=== PATIENT | male | born 1955 | race Caucasian/White ===

== ENCOUNTER 2017-11-02 21:18 | Observation (INO) | payer BC ==
[~2017-11-02] VITALS: Ht 177.8 cm; Wt 107.5 kg
[2017-11-02] MEDS ORDERED: RT ADVAIR 128 DISKUS IH (22:12)
[2017-11-02] MEDS ORDERED: COZAAR 50MG50 MG/TAB PO (22:13)
[2017-11-02 22:18] LABS: BASO % 0.2 % (0.0-2.0); EOS # 0.2 (0.0-0.7); EOS % 2.3 % (0-4.0); GRAN # 5.9 (1.4-6.5); GRAN % 71.4 % (42.2-75.2); HEMATOCRIT 46.5 % (42.0-52.0); HEMOGLOBIN 15.9 g/dl (13.5-18.0); LYMPH # 1.4 (1.2-3.4); LYMPH % 16.8 % (20.0-51.0); MEAN CELL VOLUME 89 fl (80.0-100.0); MEAN CORPUSCULAR HEMOGLOBIN 30 pg (27.0-31.0); MEAN CORPUSCULAR HGB CONC 34 g/dl (33.0-37.0); MEAN PLATELET VOLUME 9.7 fl (7.4-10.4); MONO # 0.7 (0.1-0.6); MONO % 8.8 % (1.7-9.3); PLATELET COUNT 220 K/mm3 (130-400); RED BLOOD COUNT 5.25 M/mm3 (4.20-5.60)
[2017-11-02 22:28] LABS: ALBUMIN 4.6 gm/dL (3.5-5.0); BILIRUBIN,TOTAL 0.8 mg/dL (0.0-1.0); CALCIUM 9.8 mg/dL (8.4-10.2); CREATININE, serum 0.92 mg/dL (0.66-1.25); POTASSIUM 4.4 mmol/L (3.4-5.0); TOTAL PROTEIN 8.4 gm/dL (6.4-8.2)
[2017-11-03] VITALS (7 sets, daily range): BP systolic 113–147; BP diastolic 66–89; PULSE 69–76; TEMP 98–98.9
[2017-11-03 06:50] LABS: BASO % 0.3 % (0.0-2.0); EOS # 0.1 (0.0-0.7); EOS % 2.1 % (0-4.0); GRAN # 3.8 (1.4-6.5); GRAN % 57.9 % (42.2-75.2); HEMATOCRIT 44.5 % (42.0-52.0); HEMOGLOBIN 14.8 g/dl (13.5-18.0); LYMPH # 1.7 (1.2-3.4); LYMPH % 26.2 % (20.0-51.0); MEAN CELL VOLUME 89 fl (80.0-100.0); MEAN CORPUSCULAR HEMOGLOBIN 30 pg (27.0-31.0); MEAN CORPUSCULAR HGB CONC 33 g/dl (33.0-37.0); MEAN PLATELET VOLUME 10.1 fl (7.4-10.4); MONO # 0.9 (0.1-0.6); PLATELET COUNT 224 K/mm3 (130-400); RED BLOOD COUNT 5.01 M/mm3 (4.20-5.60); REDCELL DISTRIBUTION WIDTH-CV 13.1 % (11.5-14.5)
[2017-11-03 06:56] LABS: CALCIUM 9.1 mg/dL (8.4-10.2); CHOLESTEROL RISK RATIO 3.1; CREATININE, serum 0.91 mg/dL (0.66-1.25); POTASSIUM 4.5 mmol/L (3.4-5.0)
[2017-11-04 00:25] VITALS: BP 124/80; PULSE 84; TEMP 98.2
[2017-11-04 02:42] LABS: RPR (VDRL) Non-reactive (())
[2017-11-04 04:10] VITALS: BP 98/54; PULSE 64; TEMP 98.4
[2017-11-04 06:35] LABS: ALBUMIN 3.7 gm/dL (3.5-5.0); BILIRUBIN,TOTAL 0.9 mg/dL (0.0-1.0); CALCIUM 8.7 mg/dL (8.4-10.2); CREATININE, serum 0.9 mg/dL (0.66-1.25); POTASSIUM 4.4 mmol/L (3.4-5.0); TOTAL PROTEIN 6.9 gm/dL (6.4-8.2)
[2017-11-04 06:52] VITALS: BP 114/65; PULSE 55; TEMP 98.5
== END 2017-11-04 11:34 | disposition home or self-care (01) ==
LOC: COL.ER 21:18 → MEDICAL 23:16
PROVIDERS: Emergency Medicine; Internal Medicine; Nurse Practitioner
DX: R41.82 Altered mental status, unspecified (principal); R41.3 Other amnesia; R47.01 Aphasia; E78.5 Hyperlipidemia, unspecified; G47.33 Obstructive sleep apnea (adult) (pediatric); Z90.49 Acquired absence of other specified parts of digestive tract
CPT/HCPCS: A9585; G0378; J7030

== ENCOUNTER 2021-01-10 07:30 | Day surgery (SDC) | payer BC ==
[~2021-01-10] VITALS: Ht 177.8 cm; Wt 106.3 kg
[~2021-01-10 07:30] MED LIST: COZAAR 50MG50 MG/TAB PO; RT ADVAIR 128 DISKUS IH
[2021-01-10] MEDS ORDERED: MOBIC 7.5MG7.5 MG PO (07:49)
[2021-01-10 07:55] VITALS: BP 135/93; PULSE 69; TEMP 97.6
[2021-01-10 10:05] VITALS: BP 136/94; PULSE 61; TEMP 96.6
--- NOTE | 2021-01-10 10:05 | NUR ---
1005- PATIENT BROUGHT BACK TO [facility] VIA CART. AMBULATED TO CHAIR WITHOUT DIFFICULTY. PLACED ON MONITORS, VITAL SIGNS STABLE. IV INFUSING WITHOUT DIFFICULTY. TAMMY RN AT BEDSIDE FOR REPORT. SISTER TO DRIVE PATIENT HOME. STATES HE WANTS MUFFIN AND SPRITE AT THIS TIME. DENIES PAIN OR NAUSEA. WARM BLANKET PROVIDED, CALL [facility]NE WITHIN REACH. WILL MONITOR. 1020- VITAL SIGNS STABLE. TOLERATING FOOD AND DRINK WITHOUT DIFFICULTY. WILL MONITOR. 1035- DR. ALFARO AT BEDSIDE TO REVIEW RESULTS WITH PATIENT. ALL QUESTIONS ANSWERED. STATES HE WOULD LIKE TO GO HOME AT THIS TIME. IV REMOVED, INTACT. PATIENT TO GET DRESSED AT THIS TIME. 1042- [facility]. SISTER AT FRONT TO DRIVE PATIENT HOME. ALL BELONGINGS IN HAND. ALL SAFETY MAINTAINED.
[2021-01-10 10:20] VITALS: BP 134/88; PULSE 65
[2021-01-10 10:35] VITALS: BP 138/93; PULSE 60
== END 2021-01-10 10:42 | disposition home or self-care (01) ==
LOC: SDCO 07:30
DX: Z12.11 Encounter for screening for malignant neoplasm of colon (principal); J45.909 Unspecified asthma, uncomplicated; G47.33 Obstructive sleep apnea (adult) (pediatric); E66.9 Obesity, unspecified; I10 Essential (primary) hypertension; M19.90 Unspecified osteoarthritis, unspecified site; E78.5 Hyperlipidemia, unspecified; Z79.899 Other long term (current) drug therapy; Z99.89 Dependence on other enabling machines and devices
CPT/HCPCS: J7120

== ENCOUNTER → 2021-06-13 | Outpatient (CLI) | payer BC ==
[~2021-06-13] MED LIST changes: +MOBIC 7.5MG7.5 MG PO
== END ==
LOC: COL.RAD 13:37
DX: M25.552 Pain in left hip (principal)
CPT/HCPCS: A9585; Q9967